=== PATIENT | female | born 1990 | race Caucasian/White ===

== ENCOUNTER → 2018-09-26 | Outpatient (CLI) | payer BC ==
--- NOTE | 2018-09-26 15:43 | US ---
EXAMINATION TYPE: US pelvic complete DATE OF EXAM: 09/26/2018 COMPARISON: NONE CLINICAL HISTORY: F411 ANXIETY DISORDER,Z808,[id number] IRREG MENSES. Pt states irregular vaginal bleeding in August for approx 10 days, ending on Sep 08 TECHNIQUE: Transabdominal (TA). Transabdominal sonographic images of the pelvis were acquired. Date of LMP: 08/29/2018 EXAM MEASUREMENTS: Uterus: 9.3 x 4.5 x 5.8 cm Endometrial Stripe: 0.8 cm Right Ovary: 3.4 x 1.9 x 3.2 cm Left Ovary: 3.6 x 2.2 x 3.4 cm 1. Uterus: Anteverted wnl 2. Endometrium: wnl 3. Right Ovary: wnl 4. Left Ovary: wnl 5. Bilateral Adnexa: wnl 6. Posterior cul-de-sac: Moderate amount of free fluid The junctional zone is noted to be heterogenous and questionably thickened. This could be further ass essed with pelvic MRI. IMPRESSION: 1. No endometrial thickening, however the junctional zone appears prominent and adenomyosis could be considered. This could be further assessed with pelvic MRI to measure the junctional zone. 2. Moderate amount of free fluid within the pelvis dependently within the posterior cul-de-sac, likel y physiologic in nature.
--- NOTE | 2018-09-26 15:48 | US ---
EXAMINATION TYPE: US thyroid st tissue head/neck DATE OF EXAM: 09/26/2018 COMPARISON: NONE CLINICAL HISTORY: F411 ANXIETY DISORDER,Z808,N92.6 IRREG MENSES. Irregular menses, family history of thyroid CA (Mother) GLAND SIZE: Right Lobe: 4.8 x 1.4 x 1.5 cm Overall Parenchyma: homogenous Left Lobe: 4.2 x 1.1 x 1.5 cm Overall Parenchyma: homogeneous Isthmus Thickness: 0.2 cm Bilateral neck scanned, no evidence of lymphadenopathy. Bilateral thyroid appears within normal limit s other than slight hypervascularity throughout. IMPRESSION: Slight hypervascularity of the thyroid gland suggestive of thyroiditis. No focal nodule.
== END | disposition home or self-care (01) ==
LOC: RADUSWWP 14:13
PROVIDERS: ATTEND Family Medicine
DX: N92.6 Irregular menstruation, unspecified (principal); F41.1 Generalized anxiety disorder; Z80.8 Family history of malignant neoplasm of other organs or systems
CPT/HCPCS: 76536; 76856